=== PATIENT | female | born 1955 | race Caucasian/White ===

== ENCOUNTER 2016-05-01 11:24 | Emergency (ER) | payer OTHER ==
[2016-05-01 11:48] VITALS: BP 117/79
[2016-05-01] MEDS ORDERED: Ketorolac INJ* 60 MG/2 ML VIAL IM ONE (12:34)
--- NOTE | 2016-05-01 13:30 | RAD ---
INDICATION: Fall. Headaches. COMPARISON: Negative examination. TECHNIQUE: Noncontrast axial source images were acquired from the skull base to the vertex. FINDINGS: Ventricles/sulci: The ventricles and cisterns are normal in size and configuration for age. Brain parenchyma: There is no focal parenchymal finding, evidence of intracranial mass, or intracranial mass effect. Intracranial hemorrhage:None. Extra-axial spaces: There are no abnormal extra axial fluid collections or evidence of extra-axial mass. Calvarium: There is no calvarial fracture or other calvarial abnormality. Scalp: There is no evidence of scalp or extracalvarial soft tissue abnormality. Paranasal sinuses/mastoid: The paranasal sinuses and mastoid air cells are clear. Other: None. IMPRESSION: NEGATIVE EXAMINATION
--- NOTE | 2016-05-01 13:34 | RAD ---
INDICATION: Fall. Neck pain COMPARISON: CT cervical spine April 22, 2012 TECHNIQUE: Noncontrast axial source images was performed from the skull base to the thoracic inlet. Coronal and and sagittal reformatted images were generated. FINDINGS: Vertebrae: There is no fracture or acute focal bony lesion. There are postoperative changes with an anterior plate and screw in addition to cage devices at the C5-C7 levels. The appearance is unchanged. There is fusion at C2-C3 which appears to be developmental. Alignment: The craniocervical junction appears normal. The cervical vertebrae are normally aligned. Central Canal: There are no significant CT abnormalities of the central canal or foramina. MR imaging is a more sensitive method to evaluate the canal and foramina. Intervertebral disc spaces: The remaining disc spaces are maintained. Brain: The visualized brain appears unremarkable. Soft tissues: The visualized soft tissue elements of the neck are unremarkable. The prevertebral soft tissues appear normal. The lung apices are clear. IMPRESSION: POSTOPERATIVE CHANGE. NO ACUTE CT FINDINGS.
--- NOTE | 2016-05-01 13:36 | RAD ---
INDICATION: Facial trauma, epistaxis. COMPARISON: There are no prior studies available for comparison. TECHNIQUE: Contiguous axial sections of the axial images of the facial bones were obtained and reconstructed in the coronal and sagittal planes. FINDINGS: Soft tissue swelling is noted anterior to the frontal sinus and overlying the bridge of the nose. The lopez of the orbits and maxillary sinuses appear intact. The zygomatic arches appear intact. There is no evidence for a fracture of the mandible. The nasal bones appear intact. There is moderate S-shaped deviation of the nasal septum which is convex toward the right along its anterior aspect and toward the left along its posterior aspect. The pterygoid plates appear intact. There is mild mucosal thickening present within the maxillary, ethmoid and frontal sinuses. No air-fluid levels are present. IMPRESSION: 1. NO EVIDENCE FOR FRACTURE. 2. FINDINGS SUGGESTIVE OF MILD CHRONIC SINUSITIS.
--- NOTE | 2016-05-01 13:42 | RAD ---
Indication: Pain post fall. History of L1 compression fracture. Comparison: November 25, 2013 MRI. Technique: Noncontrast CT lumbar sacral spine. Multiplanar reformation. Report: Negative for retroperitoneal hematoma within the [id number]. Mild atherosclerotic plaque of normal diameter abdominal aorta and common iliac arteries. RIGHT unilateral sacroiliac joint arthropathy with subchondral sclerosis and small subchondral erosions. Mild anterior compression deformity at L1 involving the superior endplate without change. Negative for acute fracture or spondylolysis at any level. T12-L1: Minimal annular disc bulge. Negative for acquired spinal stenosis. L1-L2: Unremarkable for age. L2-L3: Suggestion of posterior central to RIGHT subarticular mild disc protrusion with only mild resulting impression on the ventral margin of the thecal sac new compared with the prior exam. No suggestion of significant foraminal stenosis. L3-L4: Moderate disc space narrowing and large annular disc bulge with suggestion of interval increase compared with the November 25, 2013 MRI. Grade 1 degenerative anterolisthesis is new. Moderate acquired central canal stenosis with suggestion of interval increase. No significant foraminal stenosis evident. L4-L5: Mild annular disc bulge and posterior element hypertrophic arthropathy. Resulting mild acquired central canal stenosis with suggestion of interval increase compared with the prior CT. No significant foraminal stenosis evident. L5-S1: Minimal annular disc bulge without significant change. No significant acquired spinal stenosis evident. IMPRESSION: 1. No acute fracture evident. 2. Chronic mild anterior column L1 compression fracture. 3. Multilevel degenerative spondylosis and posterior element osteoarthritis as described including suggestion of a new disc protrusion at L2-L3 with resulting mild impression on the ventral margin of the thecal sac, moderate central canal stenosis at L3-L4 with interval increase, and mild acquired central canal stenosis at L4-L5 with suggestion of interval increase. 4. RIGHT unilateral sacroiliitis suggestion of inflammatory arthropathy.
--- NOTE | 2016-05-01 14:02 | UC ---
milana Lopez Timothy, scribed for Mariely Salmon MD on 05/01/16 at 1231 . Head Injury HPI - HPI Summary HPI Summary: Opal Kwan is a 60 yo female presenting to [facility] with neck, lower back, and facial injuries and 6/10 MANUEL S/P a fall from standing height on 04/29/16. She denies LOC. she states she landed on rocks. Pt was walking [place] railroad tracks when she tripped and fell face forward. She has some abrasion and swelling on the bridge of her nose from this fall. She also states she has lower back pain S/P fall, and thinks she may have twisted her back when falling. She has a Hx of back injury, with an L1 compression fracture in 2009. She has self-medicated with naproxen and percocet last night with some relief. She denies vomiting or the use of blood thinners. She states she had some nausea , but it has resolved. She had a cervical fusion surgery in 2004, and L1 compression in 2009. Her MHx includes thyroid disease, HTN, ulcer, herniated disk, and anxiety. - History Of Current Complaint Stated Complaint: FELL NECK/LOWER BACK /FACIAL INJURY Time Seen by Provider: 05/01/16 12:32 Hx Obtained From: Patient Mechanism Of Injury: fall Onset/Duration: Sudden Onset, Lasting Days Severity Currently: Moderate Severity Initially: Moderate Pain Intensity: 6 Pain Scale Used: 0-10 Numeric Character: Dull Aggravating Factor(s): Nothing Alleviating Factor(s): Nothing Associated Signs And Symptoms: Positive: Neck Pain. Negative: LOC (Time In Secs./Mins/Hrs), LOC Duration Unknown, Memory Loss, Nausea, Vomiting - Risk Factors SDH Risk Factor: Negative Risk Factors For Cervical Spine Injury: Posterior Midline Cervical Spine Tenderness - Allergies/Home Medications Allergies/Adverse Reactions: Allergies Allergy/AdvReac Type Severity Reaction Status Date / Time No Known Allergies Allergy Verified 05/01/16 11:37 PMH/Surg Hx/FS Hx/Imm Hx Endocrine History Of: Reports: Thyroid Disease Denies: Diabetes Cardiovascular History Of: Reports: Hypertension Denies: Cardiac Disorders, Pacemaker/ICD Respiratory History Of: Denies: COPD, Asthma GI/ History Of: Reports: Ulcer - DUODENAL ULCER IN PAST Denies: Renal Disease Psychological History Of: Reports: Anxiety - PT STATES NO LONGER TAKES MEDICATION Cancer History Of: Denies: Breast Cancer - Surgical History Surgical History: Yes Surgery Procedure, Year, and Place: LT SHOULDER SURGERY 10/28/12, CERVICAL FUSION 2004, CARPAL RT 2002, TUBAL LIGATION 1984, CYST REMOVAL WRIST RT - Family History Known Family History: Positive: Cardiac Disease - Social History Alcohol Use: Occasionally Alcohol Amount: 2 x per month, mixed drinks 2 or three Substance Use Type: Prescribed Substance Use Comment - Amount & Last Used: 35 years ago Smoking Status (MU): Never Smoked Tobacco Have You Smoked in the Last Year: No - Immunization History Most Recent Influenza Vaccination: Fall 2015 Most Recent Tetanus Shot: Unknown Review of Systems Constitutional: Negative Skin: Other - abrasion on face Eyes: Negative ENT: Other - neck pain Respiratory: Negative Cardiovascular: Negative Gastrointestinal: Other - nausea Genitourinary: Negative Motor: Negative Neurovascular: Negative Musculoskeletal: Other: - lower back pain Neurological: Headache Psychological: Negative All Other Systems Reviewed And Are Negative: Yes Physical Exam Triage Information Reviewed: Yes Appearance: Well-Appearing, Well-Nourished, Pain Distress Vital Signs: Initial Vital Signs Temp 97.4 F 05/01/16 11:39 Pulse 82 05/01/16 11:39 Resp 18 05/01/16 11:39 BP 117/79 05/01/16 11:39 Pulse Ox 99 05/01/16 11:39 Vital Signs Reviewed: Yes Eyes: Positive: Conjunctiva Clear ENT: Positive: Hearing grossly normal. Negative: Muffled/hoarse voice Neck: Positive: Supple, Nontender Respiratory: Positive: Chest non-tender, Lungs clear, Normal breath sounds, No respiratory distress Cardiovascular: Positive: RRR, No Murmur, Pulses Normal, Brisk Capillary Refill Musculoskeletal: Positive: Strength Intact, ROM Intact, Other: - pain at L1 Neurological: Positive: Alert, Muscle Tone Normal, Other: - patellar reflexes intact bilat Psychological Exam: Normal Skin Exam: Normal Diagnostics - Radiology CT Brain Xray Interpretation: No Acute Changes - IMPRESSION: NEGATIVE EXAMINATION Radiology Interpretation Completed By: Radiologist CT C-Spine Xray Interpretation: No Acute Changes - IMPRESSION: POSTOPERATIVE CHANGE. NO ACUTE CT FINDINGS. Radiology Interpretation Completed By: Radiologist CT Maxillofacial Xray Interpretation: No Acute Changes - IMPRESSION: 1. NO EVIDENCE FOR FRACTURE. 2. FINDINGS SUGGESTIVE OF MILD CHRONIC SINUSITIS. Radiology Interpretation Completed By: Radiologist CT L-Spine Xray Interpretation: No Acute Changes - IMPRESSION: 1. No acute fracture evident. 2. Chronic mild anterior column L1 compression fracture. 3. Multilevel degenerative spondylosis and posterior element osteoarthritis as described including suggestion of a new disc protrusion at L2-L3 with resulting mild impression on the ventral margin of the thecal sac, moderate central canal stenosis at L3-L4 with interval increase, and mild acquired central canal stenosis at L4-L5 with suggestion of interval increase. 4. RIGHT unilateral sacroiliitis suggestion of inflammatory arthropathy. Radiology Interpretation Completed By: Radiologist Re-Evaluation - Re-Evaluation First Eval Re-Evaluation Time: 13:41 Change: Unchanged Comment: Pt was informed of results of C-Spine CT, and was told she could have her collar removed. Head Injury Course/Dx - Course Course Of Treatment: Opal Kwan is a 60 yo female presenting to [facility] S/P a fall in which she fell from a standing position onto her face, landing on rocks. [facility]STOP was consulted, she had 60 oxycodone from 03/27/[address] Nixon. After review of her negative imaging studies, she will be discharged with cervical strain, nasal contusion, and lumbosacral strain S/P fall. - Differential Dx/Diagnosis Differential Diagnosis/HQI/PQRI: Cervical Sprain, Concussion Without LOC, Intracranial Bleed, Nasal Fracture, Skull Fracture Provider Diagnoses: Cervical strain, nasal contusion, and lumbosacral strain S/ P fall Discharge - Discharge Plan Condition: Stable Disposition: HOME Prescriptions: oxyCODONE/Acetamin 5/325 MG* [Percocet 5/325 TAB*] 1 tab PO Q6H PRN #12 tab MDD 4 PRN Reason: Pain Patient Education Materials: Cervical Strain (ED), Low Back Strain (ED), Nasal Contusion (ED) Referrals: Yakov Maciel MD [Primary Care Provider] - Anderson Freitas MD [Medical Doctor] - 2 Days Additional Instructions: Please follow up with Dr. Freitas regarding your visit to urgent care today. Return to urgent care or the emergency department with any new or recurring symptoms. The documentation as recorded by the milana grace Timothy accurately reflects the service I personally performed and the decisions made by , Mariely Salmon MD.
== END 2016-05-01 14:07 | disposition home or self-care (01) ==
LOC: UCEAST 11:24
DX: S16.1XXA Strain of muscle, fascia and tendon at neck level, initial encounter (principal); S39.012A Strain of muscle, fascia and tendon of lower back, initial encounter; S00.33XA Contusion of nose, initial encounter; W01.0XXA Fall on same level from slipping, tripping and stumbling without subsequent striking against object, initial encounter; Y93.01 Activity, walking, marching and hiking; Y92.85 Railroad track as the place of occurrence of the external cause; S32.010G Wedge compression fracture of first lumbar vertebra, subsequent encounter for fracture with delayed healing; X58.XXXD Exposure to other specified factors, subsequent encounter; M47.816 Spondylosis without myelopathy or radiculopathy, lumbar region; J32.9 Chronic sinusitis, unspecified
CPT/HCPCS: 70450; 70486; 72125; 72131; 96372; 99213; G0463; J1885

== ENCOUNTER 2016-08-07 10:55 | Day surgery (SDC) | payer OTHER ==
--- NOTE | 2016-07-19 16:50 | HP ---
PREOPERATIVE HISTORY AND PHYSICAL: DATE OF ADMISSION/SURGERY: 08/07/16 DATE OF OFFICE VISIT: 07/18/16 ATTENDING PHYSICIAN: Dr. Fouzia Aaron. PROCEDURE: Right shoulder arthroscopic rotator cuff repair, decompression and debridement, subpecto ral biceps tenodesis. CHIEF COMPLAINT: Right shoulder pain. HISTORY OF PRESENT ILLNESS: Opal is a 61-year-old female who presents to the clinic for followup o f right shoulder pain due to a rotator cuff tear and biceps tendonitis. The patient states that she has intermittent catching pain, sharp shooting pain, she rates it as a 10/10, in the anterior aspec t of her shoulder. She also has a constant ache in the lateral aspect of her shoulder. She has diff iculty lifting due to the pain. She takes Percocet for her back; however, this does not help decrea se the pain from her shoulder. She cannot take diclofenac due to a family history of heart disease. She states that the pain has interfered with her daily activity. She does have intermittent tingl ing in her thumb and second finger. She has had an injection and physical therapy in the past, krissy aquiles has not worked. She has failed conservative measures and has therefore agreed to undergo a right shoulder arthroscopic rotator cuff repair, decompression and debridement, subpectoral biceps tenodes is with Dr. Aaron. PAST MEDICAL HISTORY: Arthritis, GERD, hypothyroidism, depression, anxiety, hypertension, and hyper lipidemia. PAST SURGICAL HISTORY: Cervical spine, left shoulder; right carpal tunnel release; right wrist gang lion incision. MEDICATIONS: 1. Diclofenac sodium 75 mg take 1 by mouth twice a day as needed for pain. 2. Synthroid 125 mcg 1 by mouth daily. 3. Cymbalta 30 mg 1 capsule by mouth each morning. 4. Wellbutrin SR 150 mg take 1 by mouth in the morning and 1 in the early afternoon. 5. Pulmicort Flexhaler 90 mcg/ACT 2 puffs in the evening. 6. Ventolin HFA 108 mcg/ACT 2 puffs 4 times a day as needed. 7. Fluticasone propionate 50 mcg/ACT one spray each nostril in the morning. 8. Baclofen 10 mg 3 tabs 3 times a day as needed for muscle spasms. 9. Replens vaginal applicator, use 3 times weekly as directed. 10. Triamterene/hydrochlorothiazide 37.5/25 mg one by mouth every day. 11. Alprazolam 1 mg one tablet by mouth twice a day as needed. 12. Omeprazole 40 mg one by mouth every day. 13. Oxycodone/acetaminophen 7.5 mg/325 mg 1 by mouth 3 times a day as needed. ALLERGIES: No known drug allergies. FAMILY HISTORY: Positive for diabetes in her mother. Heart disease in her mother and father. Hype rtension in her father. SOCIAL HISTORY: Denies tobacco use. She reports occasional alcohol use. She exercises regularly. REVIEW OF SYSTEMS: General: Negative for fevers, chills, night sweats. No known anesthesia proble ms. HEENT: Negative for headache, lightheadedness, or syncopal episodes. Integumentary: Negative for abrasions, lesions, or open wounds. Cardiothoracic: Negative for chest pain, palpitations, or edema. Positive for hypertension and hyperlipidemia. Pulmonary: Negative for shortness of breath with exertion, chronic cough, or COPD. GI: Negative for nausea, vomiting, diarrhea, or constipatio n. Positive for GERD. : Negative for nocturia, urinary urgency, kidney problems, or history of UTIs. Musculoskeletal: Positive for current complaints. Neuro: Negative for paresthesias, numbne ss, history of seizure, stroke, or epilepsy. Endocrine: Positive for hypothyroidism. Negative for diabetes. Heme: Negative for easy bruising, anemia, excessive bleeding, history of DVT or PE. In fectious Disease: Negative for history of MRSA. PHYSICAL EXAMINATION GENERAL: A well-developed, well-nourished 61-year-old female in no acute distress, alert and orient ed x3. VITAL SIGNS: Height 6 feet, weight 145, pulse 88, blood pressure 137/97, temperature 97.3, and BMI 28.3. HEENT: Normocephalic and atraumatic. NECK: Supple. Throat clear. PULMONARY: Lungs are clear to auscultation bilaterally. No wheezing, rhonchi, or rales. CARDIOVASCULAR: Regular rate and rhythm. S1 and S2. No murmurs, gallops, or rubs. No edema. ABDOMEN: Positive bowel sounds, soft, and nontender. NEUROLOGIC: Alert and oriented x3. Cranial nerves grossly intact. Sensation intact to light touch distally. MUSCULOSKELETAL: Right upper extremity: The skin is intact. No warmth or erythema. Tenderness to palpation over the proximal biceps tendon. Forward flexion to 90 degrees, abduction to 65 degrees, external rotation to 75 degrees, internal rotation to posterior iliac spine. +4/5 strength and ___ __ to supraspinatus, infraspinatus, belly press and bear hug. Present Neer, Ervin's, Love-Kenned y and Rowan. +2 radial pulse, +2 ulnar pulse. Sensation is intact to light touch distally. Left upper extremity skin is intact. No warmth or erythema. Nontender to palpation. Full range of motion. +2 radial pulses. Sensation intact to light touch distally. STUDIES: MRI of the right shoulder revealed interstitial tear of the supraspinatus tendon with a S LAP tear and biceps tendonitis. IMPRESSION: Right shoulder rotator cuff tear, superior labral from anterior to posterior tear, and biceps tendonitis. PLAN/RECOMMENDATIONS: The patient is scheduled to undergo a right shoulder arthroscopic rotator cuf f repair, decompression and debridement, subpectoral biceps tenodesis with Dr. Aaron on 08/07/16, p ending primary care physician clearance. She will return to the office 10 to 14 days postop for foll owup and suture removal. Percocet will be used for postop pain management. LISA TALAVERA [id number]/[facility] #: [id number]
[~2016-08-07 10:55] MED LIST: Buffered Lidocaine 0.9% SYRIN* 5 ML/SYR SYRINGE INTRADERM ONE; Metoclopramide TAB* 10 MG PO ONE
[2016-08-07] MEDS ORDERED: Metoclopramide TAB* 10 MG ONE (11:07)
[2016-08-07] MEDS ORDERED: ceFAZolin 2 GM PREMIX(*) 2 GM/50 ML BAG IVPB ONE (11:07)
[2016-08-07] MEDS ORDERED: Buffered Lidocaine 0.9% SYRIN* 5 ML/SYR SYRINGE ONE (11:08)
[2016-08-07] MEDS ORDERED: Bupivacaine 0.25% SDV* 30 ML ONE (11:09)
[2016-08-07] MEDS ORDERED: Bupivacaine 0.25% EPI 200,000* 30 ML SDV ONE (11:10)
[2016-08-07] MEDS ORDERED: fentaNYL* 50 MCG/ML 2 ML VIAL (100 MCG VIAL) IV PRN (14:17)
[2016-08-07] MEDS ORDERED: DiMENhydriNATE IV* 50 MG/ML VIAL IV PUSH PRN (14:17)
[2016-08-07] MEDS ORDERED: Ondansetron INJ* 2 MG/ML VIAL IV PRN (14:17)
[2016-08-07] MEDS ORDERED: oxyCODONE/Acetamin 5/325 MG* TAB ONE (14:34)
[2016-08-07 15:02] VITALS: BP 114/72
--- NOTE | 2016-08-21 08:07 | OP ---
DATE OF OPERATION: 08/07/16 [facility] DATE OF : 57 SURGEON: Fouzia Aaron MD [employer] DIRECTOR: LISA Chambers ANESTHESIOLOGIST: Simone Gomez MD ANESTHESIA: General PRE-OP DIAGNOSIS: Right shoulder rotator cuff tear and biceps instability. POST-OP DIAGNOSIS: Right shoulder rotator cuff tear and biceps instability. OPERATIVE PROCEDURES: Right shoulder arthroscopy with: 1. Glenohumeral debridement including small chondroplasty. 2. Arthroscopic subscapularis repair. 3. Arthroscopic supraspinatus repair. 4. Pectoral biceps tenodesis. 5. Subacromial decompression with acromioplasty. COMPLICATIONS: None. ESTIMATED BLOOD LOSS: Minimal. IMPLANTS USED: Two Multi-Fix anchors, one Healicoil, one 2.8 mm Q-FIX. INDICATIONS: Opal Kwan is a 61-year-old female who has had persistent shoulder, failing conservative management. She had an MRI that demonstrated supraspinatus tendon as well as subscapularis tear and bicipital tendonitis versus a SLAP tear. She has failed conservative management and elected to proceed with operative treatment. Risks and benefits were discussed at length including but not limited to bleeding, infection, damage to nerves, vessels, surrounding structures, wound nonhealing, persistent pain, stiffness, scarring, persistent pain, incomplete relief of symptoms, repair, re-rupture, worsening symptoms, as well as risks of anesthesia, risk of DVT. She has elected to proceed with surgery. DESCRIPTION OF PROCEDURE: The patient was greeted in the preoperative area by the attending surgeon. Correct extremity was marked and consent was confirmed. The patient then underwent general interscalene nerve block by the anesthesiologist, after which the patient was brought back to the operating suite. She was placed in supine position on the operating table. She then underwent general anesthesia with endotracheal intubation, after which the patient was placed in the left lateral decubitus position with all bony prominences padded. She was supported with a pegboard. The right arm was draped unsterilely with 10 pounds of traction. The right shoulder was prepped and draped in the usual sterile fashion beginning with chlorhexidine soap, scrub , and alcohol wipe, and a final prep with ChloraPrep. After appropriate surgical pause indicating side, site, procedure, and administration of antibiotics, a standard postero-lateral portal was made sharply with an 11 blade. The scope was introduced in the joint. The biceps tendon was subluxed anteriorly. There was obvious tearing of the supraspinatus as well as the subscapularis. The anterior portal was made in an outside-in fashion. The humeral head had grade 0 changes. The glenoid had grade 2 changes with small unstable flaps. The inferior recess was intact. The posterior labrum had tearing and was injected. The infraspinatus tendon was intact. At this point, the biceps was tenotomized due to both the SLAP tear and the fact that the biceps was subluxed. The anterior, posterior, and superior labrum were debrided back using the dru. Small chondroplasty was done in the center of the glenoid through the small, unstable chondral flaps. The soft tissue was carefully removed to find the subscapularis which had an approximately 25% to 30% partial thickness tearing. The soft tissues were carefully released. Then, the cuff was mobilized. It was found that the subscapularis was allowed to be reduced. The partial articular surface tearing was extended all the way back to the glenoid rim, so a small coracoplasty was done and adhesions were released on either side of the subscapularis. An incision was made to repair this arthroscopically. A size 8.25 mm cannula was placed anteriorly. A small stitch Prolene suture was passed through the subscapularis and a small stab incision was made for allowing for traction on the sutures. Best and Nephew tape was then used to pass in a horizontal mattress configuration through the tendon using a traction stitch to help pass the tissue. After this was done, the lesser tuberosity was prepared using electrocautery device, the shaver, and the eder. After this was done, first the tails of the tape suture were passed through the Multi-Fix and after the punch was used to prepare the anchor hole, the anchor was placed with excellent purchase with tension on sutures to allow for restoring the rolled edge of the subscap. Final images were obtained and the shoulder was taken into range of motion and was found to nicely restore the subscapularis. At this point, attention was directed to the subacromial space. The scope was positioned in the subacromial space. The lateral portal was made. A shaver was used to debride the abundant bursa. The electrocautery device was used to skeletonize the acromion as well as the CA ligament, which allowed for identification of a moderate-sized anterolateral spur. This was then debrided back using a 4-0 oval eder. All fluid and debris was removed from the subacromial space and attention was directed to the rotator cuff. Again, there was evidence of full thickness tear, a small U-shaped tear in the supraspinatus tendon. Attention was directed to the rotator cuff. Any remaining fibers were released with the electrocautery device. The shaver was used to debride the rotator cuff as well as the greater tuberosity. A rasp was then used for rasping of the greater tuberosity to allow for bony bleeding bed. At this point, one 4.75- mm Healicoil anchor was placed through a separate stab incision with excellent purchase. Sutures were passed through the supraspinatus tendon in a horizontal mattress configuration. These were then tied down using arthroscopic knot tieing. The tails were then passed through Multi-Fix anchor, which was then secured laterally for a lateral double row repair. All fluid and debris was removed. Final images were obtained and attention was directed to the biceps. Anterior incision centered over the biceps tendon incorporating the inferior two - thirds of the pec tendon was then made with a 15 blade after reprepping the shoulder. The bed was airplaned slightly to the right side. Soft tissues were carefully dissected using Metzenbaum scissors. Once the fascia was identified, the remainder of dissection was done bluntly. The inferior aspect of the pec was retracted superiorly using a [place] blade. The bicipital groove was then palpated. A small parish in the fascia was done and the biceps was brought through the wound. The phalanges was obtained. This was a very diseased tendon with tendinopathy and tendonitis that was quite significant. The biceps groove was then prepared in the usual fashion beginning with electrocautery device, then the round ball rasp, then the osteotomes to allow for bony bleeding bed. The Q-FIX guide was then used and drilled unicortically. The Q-FIX anchor was deployed with excellent purchase. The sutures were then passed through the tendon approximately 1 cm proximal to the musculotendinous junction. These were placed in a [place]ghia Ulises-type configuration. Excess stump was then sharply excised and the biceps was shuttled back to the groove. This was then tied down. The wounds were then irrigated with sterile saline. The anterior wound was closed in layers with 2-0 Vicryl and 3-0 Monocryl. The portals were closed with 3-0 nylon. Sterile dressings were applied. The anterior wound was injected with 20 cc of Marcaine 0.25%. A Cryo/Cuff as well as an UltraSling was placed. She was then awoken from anesthesia and transferred to PACU in stable condition. POSTOPERATIVE PLAN: She will be nonweightbearing. She will be in a sling for 6 weeks. She will not be allowed to have external rotation passively or actively for 8 weeks. She will be discharged on pain medication and antibiotics. I will see the patient back in 10 to 14 days. DVT prophylaxis was considered, but deferred due to no previous personal or family history. I will see the patient back in 10 to 14 days. [id number]/[facility] #: [id number] MTDD
== END 2016-08-07 15:22 | disposition home or self-care (01) ==
LOC: OREAST 10:55
PROVIDERS: ATTEND Orthopaedic Surgery
DX: M75.111 Incomplete rotator cuff tear or rupture of right shoulder, not specified as traumatic (principal); M25.311 Other instability, right shoulder; I10 Essential (primary) hypertension; E03.9 Hypothyroidism, unspecified; J45.909 Unspecified asthma, uncomplicated; E78.5 Hyperlipidemia, unspecified
CPT/HCPCS: A9270-GY; C1713; C1776; J0690